=== PATIENT | female | born 1990 | race African-American/Black ===

== ENCOUNTER 2018-11-18 12:47 | Inpatient (IN) ==
[2018-11-18] MEDS ORDERED: ONDANSETRON 4 MG/2 ML VIAL IV PRN (13:33)
[2018-11-18] MEDS ORDERED: CITRIC ACID/SODIUM CITRATE 30 ML UDCUP PO ONE (13:37)
[2018-11-18] MEDS ORDERED: FAMOTIDINE 20 MG/2 ML VIAL IV SCH (14:00)
[2018-11-18] MEDS ORDERED: LACTATED RINGERS 1,000 ML IV SCH (14:00)
[2018-11-18 14:03] LABS: Basophils % 0.2 % (0.0-0.8); Eosinophils % 0.1 % (0.00-10.9); Hematocrit 35.3 VOL% (35.7-47.0); Hemoglobin 12.1 GM/DL (12.0-16.0); Immature Granulocytes % 0.3 %; Immature Granulocytes Absolute 0.03 #; Lymphocytes # 2.2 10*3/uL (1.4-4.0); Lymphocytes % 21.3 % (21.3-54.2); Mean Corpuscular HGB Conc 34.3 GM/DL (32-36); Mean Corpuscular Hemoglobin 32 PG (27-34); Mean Corpuscular Volume 93.4 FL (87-102); Mean Platelet Volume 12.2 FL (9.6-12.0); Monocytes % 9.1 % (1.7-12.7); Neutrophils # 7.3 10*3/uL (1.4-7.4); Platelet Count 175 T/CUMM (130-400); Red Blood Count 3.78 MC/CUMM (3.8-5.5); Red Cell Distribution Width 12.8 % (9.3-17.3); White Blood Count 10.5 T/CUMM (4-12)
[2018-11-18] MEDS ORDERED: LORazepam 2 MG/1 ML VIAL IV PRN ×2 (14:05)
[2018-11-18 14:14] LABS: INR 0.9; PT Patient Result 9.6 SECS; Partial Thromboplastin Time 29.5 SECS (0-40)
[2018-11-18 14:25] LABS: Alanine Aminotransferase 16 U/L (13-56); Albumin 2.8 G/DL (3.4-5.0); Alkaline Phosphatase 97 U/L (45-117); Aspartate Amino Transferase 18 U/L (0-37); Bilirubin,Total < 0.39 MG/DL (0.2-1.0); Blood Urea Nitrogen 8 MG/DL (7-18); Calcium 8.4 MG/DL (8.5-10.1); Glucose 82 MG/DL (74-106); Osmolality,Calculated 266.1 MOS/KG (273-304); Potassium 4.2 MMOL/L (3.5-5.1); Sodium 135 MMOL/L (136-145)
[2018-11-18] MEDS ORDERED: ceFAZolin 2,000 MG in PREMIX 1 EACH IV ONE (16:11)
[2018-11-18] MEDS ORDERED: OXYTOCIN/LR 30 UNIT/1,000 ML BAG IV ONE (16:13)
[2018-11-18] MEDS ORDERED: OXYTOCIN 10 UNIT/ML VIAL ONE (16:23)
[2018-11-18] MEDS ORDERED: MORPHINE 10 MG/10 ML VIAL ONE (17:52)
[2018-11-18] MEDS ORDERED: BUPIVACAINE SPINAL 0.75% 2 ML AMP SPINAL ONE (17:52)
[2018-11-18] MEDS ORDERED: MAGNESIUM HYDROXIDE SUSP 30 ML UDCUP PO PRN (18:01)
[2018-11-18] MEDS ORDERED: ACETAMINOPHEN 325 MG TABLET PO PRN (18:01)
[2018-11-18] MEDS ORDERED: OXYTOCIN/LR 20 UNIT/1,000 ML BAG IV ONE (18:01)
[2018-11-18] MEDS ORDERED: SIMETHICONE CHEW 80 MG TABLET PO PRN (18:01)
[2018-11-18] MEDS ORDERED: RHO(D) IMMUNE GLOBULIN 300 MCG SYRINGE IM ONE (18:01)
[2018-11-18 19:17] LABS: Apearance,Urine CLEAR (Clear); Bilirubin,Urine Negative (Negative); Blood, Urine Negative (Negative); Glucose,Urine (UA) Negative (Negative); Ketones,Urine Negative (Negative); Mucus,Urine Occasional /LPF (Occasional); Nitrite,Urine Negative (Negative); Protein,Urine Negative; RBC,Urine 4 /HPF (0-4); Urine Color Straw (Yellow); Urine Specific Gravity 1.011 (1.001-1.035); Urine Urobilinogen < 2.0 EU/DL (0.2-1.0); WBC,Urine 3 /HPF (0-6)
[2018-11-18] MEDS ORDERED: MEPERIDINE 50 MG/1 ML VIAL IV ONE (19:56)
[2018-11-18] MEDS: DOCUSATE SODIUM 100 MG CAPSULE PO SCH (21:45)
[2018-11-18] MEDS: LORazepam 1 MG TABLET PO SCH (21:45)
[2018-11-18] MEDS ORDERED: PROMETHAZINE 25 MG/1 ML VIAL IM PRN (23:26)
[2018-11-18] MEDS: ONDANSETRON 4 MG/2 ML VIAL IV PRN (23:59)
[2018-11-19] MEDS: ceFAZolin 1,000 MG in SYRINGE 1 EACH IV SCH (00:02)
[2018-11-19] MEDS ORDERED: guaiFENesin/CODEINE 5 ML LIQUID PO ONE (00:30)
[2018-11-19] MEDS ORDERED: guaiFENesin 200 MG/10 ML UDCUP PO PRN (00:53)
[2018-11-19 01:17] LABS: Basophils % 0.2 % (0.0-0.8); Hematocrit 35.3 VOL% (35.7-47.0); Hemoglobin 12.1 GM/DL (12.0-16.0); Immature Granulocytes % 0.3 %; Immature Granulocytes Absolute 0.06 #; Lymphocytes % 10.8 % (21.3-54.2); Mean Corpuscular HGB Conc 34.3 GM/DL (32-36); Mean Corpuscular Hemoglobin 32 PG (27-34); Mean Corpuscular Volume 92.9 FL (87-102); Mean Platelet Volume 12.3 FL (9.6-12.0); Monocytes % 5.2 % (1.7-12.7); Neutrophils # 15.4 10*3/uL (1.4-7.4); Neutrophils % 83.5 % (38.7-73.9); Platelet Count 161 T/CUMM (130-400); Red Cell Distribution Width 12.5 % (9.3-17.3); White Blood Count 18.4 T/CUMM (4-12)
[2018-11-19] MEDS: LORazepam 1 MG TABLET PO SCH ×4 (02:27→20:22)
[2018-11-19] MEDS: LACTATED RINGERS 1,000 ML IV SCH ×3 (04:15→12:36)
[2018-11-19] MEDS ORDERED: SIMETHICONE CHEW 80 MG TABLET PO ONE (04:24)
[2018-11-19] MEDS: ONDANSETRON 4 MG/2 ML VIAL IV PRN (06:50)
[2018-11-19] MEDS: IBUPROFEN 800 MG TABLET PO PRN ×2 (06:56→20:27)
[2018-11-19] MEDS ORDERED: METOCLOPRAMIDE 10 MG/2 ML VIAL IV SCH (08:00)
[2018-11-19] MEDS: DOCUSATE SODIUM 100 MG CAPSULE PO SCH ×2 (09:31→20:21)
[2018-11-19] MEDS: SERTRALINE 50 MG TABLET PO SCH (09:31)
[2018-11-19] MEDS: MULTIVITAMIN (PRENATAL) TABLET PO SCH (09:31)
[2018-11-19] MEDS: MAGNESIUM HYDROXIDE SUSP 30 ML UDCUP PO SCH ×2 (09:31→20:21)
[2018-11-19] MEDS: METOCLOPRAMIDE 10 MG TABLET PO SCH ×2 (09:35→17:21)
[2018-11-19] MEDS: SIMETHICONE CHEW 80 MG TABLET PO SCH ×4 (09:35→20:23)
[2018-11-19 13:11] LABS: Basophils % 0.1 % (0.0-0.8); Hematocrit 32.4 VOL% (35.7-47.0); Immature Granulocytes % 0.5 %; Immature Granulocytes Absolute 0.08 #; Lymphocytes # 2.4 10*3/uL (1.4-4.0); Lymphocytes % 15.5 % (21.3-54.2); Mean Corpuscular Hemoglobin 32 PG (27-34); Mean Corpuscular Volume 92.8 FL (87-102); Mean Platelet Volume 13.3 FL (9.6-12.0); Monocytes % 6.1 % (1.7-12.7); Neutrophils # 12.2 10*3/uL (1.4-7.4); Neutrophils % 77.8 % (38.7-73.9); Platelet Count 150 T/CUMM (130-400); Red Blood Count 3.49 MC/CUMM (3.8-5.5); Red Cell Distribution Width 12.6 % (9.3-17.3); White Blood Count 15.7 T/CUMM (4-12)
[2018-11-19] MEDS ORDERED: BISACODYL 10 MG SUPP RECTAL PRN (20:20)
[2018-11-20] MEDS: METOCLOPRAMIDE 10 MG TABLET PO SCH ×2 (00:32→09:17)
[2018-11-20] MEDS ORDERED: MAGNESIUM CITRATE 300 ML BOTTLE PO ONE (05:00)
[2018-11-20 07:09] VITALS: BP 119/78
[2018-11-20] MEDS: ceFAZolin 1,000 MG in SYRINGE 1 EACH IV SCH (09:14)
[2018-11-20] MEDS: IBUPROFEN 800 MG TABLET PO PRN (09:15)
[2018-11-20] MEDS: MAGNESIUM HYDROXIDE SUSP 30 ML UDCUP PO SCH (09:15)
[2018-11-20] MEDS: DOCUSATE SODIUM 100 MG CAPSULE PO SCH (09:15)
[2018-11-20] MEDS: SIMETHICONE CHEW 80 MG TABLET PO SCH (09:16)
[2018-11-20] MEDS: LORazepam 1 MG TABLET PO SCH (09:16)
[2018-11-20] MEDS: SERTRALINE 50 MG TABLET PO SCH (09:16)
[2018-11-20] MEDS: MULTIVITAMIN (PRENATAL) TABLET PO SCH (09:16)
== END 2018-11-20 11:00 | disposition home or self-care (01) | DRG 540 ==
LOC: N.LDOUT 12:47 → N.LD 12:50 → N.SDSINP 13:34 → N.OB 20:50
PROVIDERS: ADMIT Obstetrics & Gynecology; ATTEND Obstetrics & Gynecology
PROC: LDCSECT (ICD-10-PCS; 2018-11-18 16:45)

== ENCOUNTER 2020-03-10 06:14 | Inpatient (IN) ==
[2020-03-10] MEDS ORDERED: ceFAZolin 2,000 MG in PREMIX 1 EACH IV ONE (06:24)
[2020-03-10] MEDS ORDERED: CITRIC ACID/SODIUM CITRATE 30 ML UDCUP PO ONE (06:24)
[2020-03-10] MEDS ORDERED: FAMOTIDINE 20 MG/2 ML VIAL IV ONE (06:24)
[2020-03-10] MEDS ORDERED: LACTATED RINGERS 1,000 ML IV SCH (06:30)
[2020-03-10] MEDS ORDERED: PHENYLEPHRINE 1 MG/10 ML SYRINGE IV ONE (06:33)
[2020-03-10] MEDS ORDERED: BUPIVACAINE SPINAL 0.75% 2 ML AMP SPINAL ONE (06:34)
[2020-03-10] MEDS ORDERED: fentaNYL 100 MCG/2 ML VIAL ONE (06:34)
[2020-03-10] MEDS ORDERED: MORPHINE 10 MG/10 ML VIAL ONE (06:34)
[2020-03-10] MEDS ORDERED: KETOROLAC 60 MG/2 ML VIAL IM ONE (06:34)
[2020-03-10] MEDS ORDERED: ONDANSETRON 4 MG/2 ML VIAL ONE (06:34)
[2020-03-10 06:59] LABS: Basophils % 0.1 % (0.0-0.8); Eosinophils % 0.2 % (0.00-10.9); Hematocrit 31.2 VOL% (35.7-47.0); Hemoglobin 10.2 GM/DL (12.0-16.0); Immature Granulocytes % 0.4 %; Immature Granulocytes Absolute 0.04 #; Lymphocytes # 2.6 10*3/uL (1.4-4.0); Lymphocytes % 26.2 % (21.3-54.2); Mean Corpuscular HGB Conc 32.7 GM/DL (32-36); Mean Corpuscular Volume 93.1 FL (87-102); Mean Platelet Volume 12.6 FL (9.6-12.0); Monocytes % 10.1 % (1.7-12.7); Platelet Count 260 T/CUMM (130-400); Red Blood Count 3.35 MC/CUMM (3.8-5.5); Red Cell Distribution Width 15.3 % (9.3-17.3); White Blood Count 9.9 T/CUMM (4-12)
[2020-03-10] MEDS ORDERED: LACTATED RINGERS 1,000 ML IV ONE (07:10)
[2020-03-10 07:17] LABS: Alanine Aminotransferase 14 U/L (13-56); Albumin 2.4 G/DL (3.4-5.0); Alkaline Phosphatase 156 U/L (45-117); Aspartate Amino Transferase 14 U/L (0-37); Bilirubin,Total < 0.39 MG/DL (0.2-1.0); Blood Urea Nitrogen 7 MG/DL (7-18); Calcium 8.8 MG/DL (8.5-10.1); Estimated Glom Filtration Rate 147 ML/MIN; Glucose 83 MG/DL (74-106); Osmolality,Calculated 262.4 MOS/KG (273-304); Total Protein 7.8 G/DL (6.4-8.3)
[2020-03-10] MEDS ORDERED: OXYTOCIN/LR 30 UNIT/1,000 ML BAG IV ONE (08:01)
[2020-03-10] MEDS ORDERED: OXYTOCIN 10 UNIT/ML VIAL IM ONE (08:01)
[2020-03-10] MEDS ORDERED: ROPIVACAINE 0.5% 30 ML VIAL ONE (08:37)
[2020-03-10] MEDS ORDERED: DEXAMETHASONE 4 MG/1 ML VIAL ONE (08:37)
[2020-03-10] MEDS ORDERED: RHO(D) IMMUNE GLOBULIN 300 MCG SYRINGE IM ONE (09:37)
[2020-03-10] MEDS ORDERED: MAGNESIUM HYDROXIDE SUSP 30 ML UDCUP PO PRN (09:37)
[2020-03-10] MEDS ORDERED: ONDANSETRON 4 MG/2 ML VIAL IV PRN (09:37)
[2020-03-10] MEDS ORDERED: ACETAMINOPHEN 325 MG TABLET PO PRN (09:37)
[2020-03-10] MEDS ORDERED: OXYTOCIN/LR 20 UNIT/1,000 ML BAG IV ONE (09:37)
[2020-03-10] MEDS ORDERED: IBUPROFEN 800 MG TABLET PO PRN (09:37)
[2020-03-10 09:39] LABS: Cord Venous Blood HCO3 22.1 MMOL/L; Cord Venous Blood PCO2 46.3 MMHG; Cord Venous Blood PO2 27.7
[2020-03-10 09:42] LABS: Apearance,Urine CLEAR (Clear); Bilirubin,Urine Negative (Negative); Blood, Urine Negative (Negative); Glucose,Urine (UA) Negative (Negative); Ketones,Urine Negative (Negative); Mucus,Urine Occasional /LPF (Occasional); Nitrite,Urine Negative (Negative); Protein,Urine Negative; RBC,Urine 1 /HPF (0-4); Squamous Epithelial Cell,Urine Occasional /HPF (0-10); Urine Color Yellow (Yellow); Urine Specific Gravity 1.012 (1.001-1.035); Urine Urobilinogen < 2.0 EU/DL (0.2-1.0); WBC,Urine 2 /HPF (0-6)
[2020-03-10] MEDS ORDERED: ceFAZolin 1,000 MG in SYRINGE 1 EACH IV SCH (10:00)
[2020-03-10] MEDS ORDERED: PROMETHAZINE 25 MG/1 ML VIAL IM PRN (12:43)
[2020-03-10] MEDS ORDERED: diphenhydrAMINE 50 MG/1 ML VIAL IV PRN (12:43)
[2020-03-10] MEDS ORDERED: HYDROmorphone 2 MG/1 ML VIAL IV PRN (12:43)
[2020-03-10] MEDS ORDERED: hydrOXYzine HCL 25 MG/1 ML VIAL IM PRN (12:43)
[2020-03-10] MEDS ORDERED: PROMETHAZINE 25 MG/1 ML VIAL ONE (12:46)
[2020-03-10] MEDS: LACTATED RINGERS 1,000 ML IV SCH (16:28)
[2020-03-10] MEDS: KETOROLAC 30 MG/1 ML VIAL IV SCH ×2 (16:42→22:38)
[2020-03-10 18:04] LABS: Basophils % 0.1 % (0.0-0.8); Hematocrit 29.2 VOL% (35.7-47.0); Hemoglobin 9.6 GM/DL (12.0-16.0); Immature Granulocytes % 0.7 %; Immature Granulocytes Absolute 0.13 #; Lymphocytes # 1.2 10*3/uL (1.4-4.0); Lymphocytes % 6.2 % (21.3-54.2); Mean Corpuscular HGB Conc 32.9 GM/DL (32-36); Mean Corpuscular Volume 95.4 FL (87-102); Mean Platelet Volume 11.9 FL (9.6-12.0); Monocytes % 3.6 % (1.7-12.7); Neutrophils % 89.4 % (38.7-73.9); Platelet Count 239 T/CUMM (130-400); Red Blood Count 3.06 MC/CUMM (3.8-5.5); Red Cell Distribution Width 15.1 % (9.3-17.3); White Blood Count 18.7 T/CUMM (4-12)
[2020-03-10] MEDS: ceFAZolin 1,000 MG in SYRINGE 1 EACH IV SCH (18:16)
[2020-03-10] MEDS: DOCUSATE SODIUM 100 MG CAPSULE PO SCH (22:34)
[2020-03-11] MEDS: LACTATED RINGERS 1,000 ML IV SCH (01:04)
[2020-03-11] MEDS: ceFAZolin 1,000 MG in SYRINGE 1 EACH IV SCH (02:20)
[2020-03-11] MEDS: KETOROLAC 30 MG/1 ML VIAL IV SCH (04:33)
[2020-03-11 05:37] LABS: Basophils % 0.2 % (0.0-0.8); Hematocrit 25.1 VOL% (35.7-47.0); Hemoglobin 8.1 GM/DL (12.0-16.0); Immature Granulocytes % 0.4 %; Immature Granulocytes Absolute 0.07 #; Lymphocytes # 2.8 10*3/uL (1.4-4.0); Lymphocytes % 16.8 % (21.3-54.2); Mean Corpuscular HGB Conc 32.3 GM/DL (32-36); Mean Corpuscular Volume 95.1 FL (87-102); Mean Platelet Volume 12.8 FL (9.6-12.0); Monocytes % 8.3 % (1.7-12.7); Neutrophils % 74.3 % (38.7-73.9); Platelet Count 204 T/CUMM (130-400); Red Blood Count 2.64 MC/CUMM (3.8-5.5); Red Cell Distribution Width 15.2 % (9.3-17.3); White Blood Count 16.4 T/CUMM (4-12)
[2020-03-11] MEDS: MULTIVITAMIN (PRENATAL) TABLET PO SCH (09:58)
[2020-03-11] MEDS: DOCUSATE SODIUM 100 MG CAPSULE PO SCH ×2 (09:58→19:43)
[2020-03-11] MEDS ORDERED: BISACODYL 10 MG SUPP RECTAL PRN (16:02)
[2020-03-11] MEDS: SIMETHICONE CHEW 80 MG TABLET PO PRN (16:09)
[2020-03-11] MEDS: METOCLOPRAMIDE 10 MG TABLET PO SCH ×2 (16:09→23:44)
[2020-03-12] MEDS: METOCLOPRAMIDE 10 MG TABLET PO SCH (08:37)
[2020-03-12] MEDS: MULTIVITAMIN (PRENATAL) TABLET PO SCH (08:37)
[2020-03-12] MEDS: DOCUSATE SODIUM 100 MG CAPSULE PO SCH (08:37)
[2020-03-12] MEDS ORDERED: FERROUS SULFATE 325 MG TABLET PO SCH (09:00)
[2020-03-12] MEDS: SIMETHICONE CHEW 80 MG TABLET PO PRN (11:35)
[2020-03-12 11:45] VITALS: BP 118/66
[2020-03-12] MEDS ORDERED: DIPH/TET/ACEL PERT BOOSTER VACCINE 0.5 ML VIAL IM ONE (14:13)
== END 2020-03-12 14:45 | disposition home or self-care (01) | DRG 540 ==
LOC: N.LDOUT 06:14 → N.LD 06:15 → N.OB 12:36
PROVIDERS: ADMIT Obstetrics & Gynecology; ATTEND Obstetrics & Gynecology
PROC: LDCSECT (ICD-10-PCS; 2020-03-10 08:30)

== ENCOUNTER 2021-09-21 09:00 | Inpatient (IN) ==
[2021-09-21] MEDS ORDERED: FAMOTIDINE 20 MG/2 ML VIAL IV ONE (09:11)
[2021-09-21] MEDS ORDERED: CITRIC ACID/SODIUM CITRATE 30 ML UDCUP PO ONE (09:11)
[2021-09-21] MEDS ORDERED: ceFAZolin 2,000 MG/50 ML DUPLEX IV ONE (09:11)
[2021-09-21] MEDS ORDERED: OXYTOCIN 10 UNIT/ML VIAL IM ONE (09:11)
[2021-09-21] MEDS ORDERED: LACTATED RINGERS 1,000 ML IV PRN (09:11)
[2021-09-21] MEDS ORDERED: OXYTOCIN/LR 30 UNIT/1,000 ML BAG IV ONE (09:11)
[2021-09-21 09:39] LABS: Eosinophils % 0.2 % (0.00-10.9); Hematocrit 33.5 VOL% (35.7-47.0); Hemoglobin 11.1 GM/DL (12.0-16.0); Immature Granulocytes % 0.4 %; Immature Granulocytes Absolute 0.03 #; Lymphocytes # 1.7 10*3/uL (1.4-4.0); Lymphocytes % 21.5 % (21.3-54.2); Mean Corpuscular HGB Conc 33.1 GM/DL (32-36); Mean Corpuscular Volume 94.6 FL (87-102); Mean Platelet Volume 12.3 FL (9.6-12.0); Monocytes % 8.9 % (1.7-12.7); Platelet Count 208 T/CUMM (130-400); Red Blood Count 3.54 MC/CUMM (3.8-5.5); Red Cell Distribution Width 13.9 % (9.3-17.3)
[2021-09-21] MEDS ORDERED: DEXAMETHASONE 4 MG/1 ML VIAL ONE ×2 (10:01→10:38)
[2021-09-21] MEDS ORDERED: KETOROLAC 30 MG/1 ML VIAL ONE (10:01)
[2021-09-21] MEDS ORDERED: BUPIVACAINE SPINAL 0.75% 2 ML AMP SPINAL ONE (10:01)
[2021-09-21] MEDS ORDERED: ONDANSETRON 4 MG/2 ML VIAL ONE (10:01)
[2021-09-21] MEDS ORDERED: ACETAMINOPHEN INJ 1,000 MG/100 ML VIAL IV ONE (10:01)
[2021-09-21 10:05] LABS: Albumin 2.5 G/DL (3.4-5.0); Bilirubin,Total 0.5 MG/DL (0.20-1.00); Calcium 8.4 MG/DL (8.5-10.1); Osmolality,Calculated 265.1 MOS/KG (273-304); Potassium 3.7 MMOL/L (3.5-5.1); Total Protein 7.6 G/DL (6.4-8.2)
[2021-09-21 10:08] LABS: Bilirubin,Urine Negative (Negative); Blood, Urine Negative (Negative); Glucose,Urine (UA) Negative (Negative); Ketones,Urine Negative (Negative); Mucus,Urine Occasional /LPF (Occasional); Nitrite,Urine Negative (Negative); Protein,Urine Negative; RBC,Urine 1 /HPF (0-4); Squamous Epithelial Cell,Urine Occasional /HPF (0-10); Urine Appearance CLEAR (Clear); Urine Color Yellow (Yellow); Urine Urobilinogen < 2.0 EU/DL (0.2-1.0)
[2021-09-21] MEDS ORDERED: PHENYLEPHRINE 1 MG/10 ML SYRINGE IV ONE (10:18)
[2021-09-21] MEDS ORDERED: ePHEDrine 50 MG/ML VIAL ONE (10:19)
[2021-09-21] MEDS ORDERED: LACTATED RINGERS 2,000 ML IV ONE (10:36)
[2021-09-21] MEDS ORDERED: fentaNYL 100 MCG/2 ML VIAL ONE (10:44)
[2021-09-21 10:55] LABS: Cord Arterial Blood HCO3 22.1 MMOL/L
[2021-09-21 10:58] LABS: Cord Venous Blood HCO3 22.8 MMOL/L; Cord Venous Blood PCO2 43.8 MMHG; Cord Venous Blood PO2 33.4
[2021-09-21] MEDS ORDERED: RHO(D) IMMUNE GLOBULIN 300 MCG SYRINGE IM ONE (11:10)
[2021-09-21] MEDS ORDERED: IBUPROFEN 800 MG TABLET PO PRN (11:10)
[2021-09-21] MEDS ORDERED: MAGNESIUM HYDROXIDE SUSP 30 ML UDCUP PO PRN (11:10)
[2021-09-21] MEDS ORDERED: ACETAMINOPHEN 325 MG TABLET PO PRN (11:10)
[2021-09-21] MEDS ORDERED: OXYTOCIN/LR 20 UNIT/1,000 ML BAG IV ONE (11:10)
[2021-09-21] MEDS ORDERED: ONDANSETRON 4 MG/2 ML VIAL IV PRN (11:10)
[2021-09-21] MEDS ORDERED: LACTATED RINGERS 1,000 ML IV SCH (11:30)
[2021-09-21] MEDS: ACETAMINOPHEN 500 MG TABLET PO SCH (17:10)
[2021-09-21] MEDS: KETOROLAC 30 MG/1 ML VIAL IV SCH ×2 (17:10→23:06)
[2021-09-21 18:19] LABS: Basophils % 0.1 % (0.0-0.8); Hematocrit 29.3 VOL% (35.7-47.0); Immature Granulocytes % 0.3 %; Immature Granulocytes Absolute 0.05 #; Lymphocytes # 0.9 10*3/uL (1.4-4.0); Lymphocytes % 5.7 % (21.3-54.2); Mean Corpuscular HGB Conc 34.1 GM/DL (32-36); Mean Corpuscular Volume 93.3 FL (87-102); Mean Platelet Volume 11.9 FL (9.6-12.0); Monocytes % 3.3 % (1.7-12.7); Neutrophils % 90.6 % (38.7-73.9); Platelet Count 192 T/CUMM (130-400); Red Blood Count 3.14 MC/CUMM (3.8-5.5); Red Cell Distribution Width 13.5 % (9.3-17.3); White Blood Count 15.6 T/CUMM (4-12)
[2021-09-21 19:51] LABS: Band Neutrophils 2 % (0-10); Lymphocytes 4 % (20-55); Macrocytosis Slight; Platelet Estimate Normal; Segmented Neutrophils 89 % (50-85); Total Cells Counted 100
[2021-09-21] MEDS: DOCUSATE SODIUM 100 MG CAPSULE PO SCH (20:46)
[2021-09-22] MEDS: ACETAMINOPHEN 500 MG TABLET PO SCH (01:58)
[2021-09-22] MEDS: KETOROLAC 30 MG/1 ML VIAL IV SCH (04:50)
[2021-09-22 05:01] LABS: Basophils % 0.2 % (0.0-0.8); Hematocrit 25.8 VOL% (35.7-47.0); Hemoglobin 8.7 GM/DL (12.0-16.0); Immature Granulocytes % 0.5 %; Immature Granulocytes Absolute 0.06 #; Lymphocytes # 2.1 10*3/uL (1.4-4.0); Mean Corpuscular HGB Conc 33.7 GM/DL (32-36); Mean Corpuscular Volume 93.5 FL (87-102); Mean Platelet Volume 12.7 FL (9.6-12.0); Monocytes % 6.6 % (1.7-12.7); Neutrophils % 76.7 % (38.7-73.9); Platelet Count 183 T/CUMM (130-400); Red Blood Count 2.76 MC/CUMM (3.8-5.5); Red Cell Distribution Width 13.6 % (9.3-17.3); White Blood Count 12.8 T/CUMM (4-12)
[2021-09-22] MEDS: SIMETHICONE CHEW 80 MG TABLET PO PRN ×3 (10:35→20:46)
[2021-09-22] MEDS: DOCUSATE SODIUM 100 MG CAPSULE PO SCH ×2 (10:35→20:01)
[2021-09-22] MEDS: MULTIVITAMIN (PRENATAL) TABLET PO SCH (10:35)
[2021-09-22] MEDS: METOCLOPRAMIDE 10 MG TABLET PO SCH ×2 (10:35→16:27)
[2021-09-22] MEDS: FERROUS SULFATE 325 MG TABLET PO SCH (10:35)
[2021-09-23] MEDS ORDERED: IBUPROFEN 800 MG TABLET PO PRN (03:10)
[2021-09-23] MEDS: SIMETHICONE CHEW 80 MG TABLET PO PRN (03:17)
[2021-09-23] MEDS: FERROUS SULFATE 325 MG TABLET PO SCH (09:09)
[2021-09-23] MEDS: DOCUSATE SODIUM 100 MG CAPSULE PO SCH (09:09)
[2021-09-23] MEDS: MULTIVITAMIN (PRENATAL) TABLET PO SCH (09:09)
[2021-09-23 10:05] VITALS: BP 112/67
[2021-09-23] MEDS ORDERED: INFLUENZA VIRUS VACCINE 0.5 ML SYRINGE IM ONE (12:50)
[2021-09-23] MEDS ORDERED: DIPH/TET/ACEL PERT BOOSTER VACCINE 0.5 ML VIAL IM ONE (12:51)
== END 2021-09-23 14:00 | disposition home or self-care (01) | DRG 539 ==
LOC: N.LD 09:00 → N.OB 14:44
PROVIDERS: ADMIT Obstetrics & Gynecology; ATTEND Obstetrics & Gynecology